=== PATIENT | male | born 1990 ===

== ENCOUNTER 2016-11-17 23:53 | Observation (INO) | payer SELFPAY ==
[2016-11-18 00:05] VITALS: RESP 20
--- NOTE | 2016-11-18 00:06 | C.PDOC ---
History Of Present Illness The patient presents to the ED via EMS for evaluation of public alcohol intoxication for an unknown duration. Patient was found intoxicated on the street. Patient denies suicidal/homicidal ideation and has no physical complaints at this time. Time Seen by Provider: 11/18/16 00:06 Chief Complaint (Nursing): Substance Abuse History Per: Patient, EMS History/Exam Limitations: intoxication Onset/Duration Of Symptoms: Unknown Current Symptoms Are (Timing): Still Present Suicide/Self Injury Attempted (Context): None Modifying Factor(s): Alcohol Severity: None Pain Scale Rating Of: 0 Associated Symptoms: denies: Suicidal Thoughts, Suicidal Plan Involuntary Hold By: None Recent travel outside of the [place]: No Additional History Per: Patient, EMS Past Medical History Reviewed: Historical Data, Nursing Documentation, Vital Signs Vital Signs: Last Vital Signs Temp 97.6 F 11/18/16 04:48 Pulse 102 H 11/18/16 04:48 Resp 20 11/18/16 04:48 BP 100/59 L 11/18/16 04:48 Pulse Ox 99 11/18/16 04:48 - Medical History PMH: No Chronic Diseases Surgical History: No Surg Hx Family History: States: Unknown Family Hx - Social History Hx Alcohol Use: Yes Hx Substance Use: No Review Of Systems Constitutional: Negative for: Fever, Chills Cardiovascular: Negative for: Chest Pain, Palpitations Respiratory: Negative for: Cough, Shortness of Breath Gastrointestinal: Negative for: Nausea, Vomiting, Abdominal Pain Skin: Negative for: Rash, Lesions, Jaundice, Bruising Neurological: Negative for: Weakness, Numbness Psych: Positive for: Other (EtOH intoxication ). Negative for: Depression, Suicidal ideation Physical Exam - Physical Exam Appears: Non-toxic, No Acute Distress, Other (visibly intoxicated ) Skin: Warm, Dry Head: Atraumatic Eye(s): bilateral: Normal Inspection Oral Mucosa: Moist, Other (alcohol on breath ) Chest: Symmetrical, No Deformity, No Tenderness Cardiovascular: Rhythm Regular, No Murmur Respiratory: No Rales, No Rhonchi, No Wheezing Gastrointestinal/Abdominal: Soft, No Tenderness Extremity: Normal ROM Extremity: Bilateral: Atraumatic Neurological/Psych: Other (arousable to touch and verbal stimuli ) Gait: Unsteady ED Course And Treatment O2 Sat by Pulse Oximetry: 98 (on RA) Pulse Ox Interpretation: Normal Progress Note: Patient placed in ED OBS for acute alcohol intoxication and is pending sobriety. Reevaluation Time: 04:50 Reassessment Condition: Improved ED OBSERVATION Discharge: Yes Date of observation admission: 11/18/16 Time of observation admission: 00:09 - Observation admission statement Patient is being placed in observation because:: acute alcohol intoxication - Goals of Observation Goals of observation are:: sobriety - Progress Note Progress Note: 11/18/16 00:09 vitals stable 11/18/16 03:50 vitals stable Disposition Counseled Patient/Family Regarding: Studies Performed, Diagnosis - Disposition Disposition: HOME/ ROUTINE Disposition Time: 00:06 Condition: FAIR - Clinical Impression Clinical Impression: Alcohol intoxication - Scribe Statement The provider has reviewed the documentation as recorded by the Scribe (Sydney Goldstein) Provider Attestation: All medical record entries made by the Scribe were at my direction and personally dictated by me. I have reviewed the chart and agree that the record accurately reflects my personal performance of the history, physical exam, medical decision making, and the department course for this patient. I have also personally directed, reviewed, and agree with the discharge instructions and disposition.
[2016-11-18 04:49] VITALS: BP 100/59; PULSE 102; TEMP 97.6
[2016-11-18 04:51] VITALS: O2SAT 98
== END 2016-11-18 04:51 | disposition home or self-care (01) ==
LOC: C.ER 23:53 → C.9OBSV 11-18 00:08
PROVIDERS: ADMIT Emergency Medicine; ATTEND Emergency Medicine
DX: F10.120 Alcohol abuse with intoxication, uncomplicated (principal)
CPT/HCPCS: 82948; 99282; G0378